=== PATIENT | female | born 1990 | race Caucasian/White ===

== ENCOUNTER 2018-12-02 19:51 | Inpatient (IN) | payer OTHER ==
[~2018-12-02 19:51] MED LIST: Bupivacaine/Epinephrine 0.25% 30 ML VIAL ONE
[2018-12-02 20:25] VITALS: BP 143/83; TEMP 98.3; BMI 32.4
[2018-12-02] MEDS ORDERED: Promethazine HCl 25 MG/ML VIAL IM PRN (20:43)
[2018-12-02] MEDS ORDERED: Butorphanol Tartrate 1 MG/ML VIAL SLOW IVP PRN (20:43)
[2018-12-02] MEDS ORDERED: Ibuprofen 800 MG TAB PO PRN (20:43)
[2018-12-02] MEDS ORDERED: Lidocaine 1% (PF) 30 ML VIAL SC PRN (20:43)
[2018-12-02] MEDS ORDERED: HYDROcodone/Acetaminophen 5/325 mg Tablet PO PRN ×2 (20:43)
[2018-12-02] MEDS ORDERED: NS / Oxytocin 40 units/1000ml 1,000 ML IV PRN (20:43)
[2018-12-02] MEDS ORDERED: Penicillin G Potassium 5 MILL.UNITS in Sodium Chloride 0.9% 100 ML IVPB SCH (20:45)
--- NOTE | 2018-12-02 20:47 | PDOC.LDHP ---
Labor and Delivery H&P HPI: Time: 2044 Location: L&D Patient of Dr Schulte CC: Here for CTX HPI: 28 yo (2 SABs) at 37 weeks 2 days, here for irergular CTX. No LOF, no VB. Good FM; no issues. She does have a past HX of anxiety, but is not on medications. She was checked last week and was 2cm Wednesday. Review of Systems: complete ROS completed and negative as per HPI Current gestational age (weeks): 37 (2 days) Dating criteria: last menstrual period Grav: 5 Para: 2 OB History Details: SVDs in past, no issues; SAB x 2 Current complications: none Abnormal US findings: No Past Medical History: Anxiety Current medications: pre-estela vitamins Previous surgical history: dilation and curettage, other (T&A) Allergies/Adverse Reactions: Allergies Allergy/AdvReac Type Severity Reaction Status Date / Time No Known Allergies Allergy Verified 12/02/18 20:16 - Physical Exam Abnormal vital signs: 143/83, 134/77, pulse 105; temp 98.3 General: NAD Heart: RRR Lungs: CTAB Abdomen: gravid Extremeties: no edema FHT: category 1, variability present Lozano contractions every: irritability; very irrgegular and nonfrequent CTX - Vaginal Exam cm dilated: 3 (to 4) Effacement: 75% Station: -1 - Assessment Multip at early term with cervical change from Wednesday (2 cm to 3-4cm); GBS pos; HX anxiety. - Plan Plan: admit to L&D, GBS antibiotic prophylaxis, informed consent obtained, anesthesia consult for pain management, other (Due to cervical change, and pain stated as 8/10 with CTX, I have elected to admit the patient . Additionally, her initial BP of 142/88 pushs me to admit. I will check CMP with labs. If BPs remain elevated, we may elect to begin Mag Sulfate (although ASX) to be conservative. I have given report to Dr Schulte, who is aware of the admission.)
[2018-12-02] MEDS: Lactated Ringer's 1,000 ML IV SCH (21:32)
[2018-12-02 21:49] LABS: Hemoglobin 12.3 g/dL (12.0-16.0); Mean Corpuscular HGB CONC 34.5 g/dL (32.0-36.0); Mean Corpuscular Hemoglobin 31.7 pg (27.0-31.0); Mean Platelet Volume 7.6 fL (7.4-10.4); Platelet Count 207 thou/uL (130-400); RBC Distribution Width 13.8 % (11.5-14.5); Red Blood Cell (RBC) Count 3.89 mill/uL (4.20-5.40); White Blood Cell (WBC) Count 13.5 thou/uL (4.8-10.8)
[2018-12-02 22:16] LABS: ALT (SGPT) 10 U/L (8-55); AST (SGOT) 18 U/L (5-34); Albumin 3.7 g/dL (3.5-5.0); Alkaline Phosphatase 150 U/L (40-150); Anion Gap 13 mmol/L (10-20); BUN (Urea Nitrogen) Less than 4 mg/dL (7.0-18.7); Bilirubin, Total 0.8 mg/dL (0.2-1.2); Calc. Creatinine Clearance 175 mL/min (70-130); Calcium 10.5 mg/dL (7.8-10.44); Carbon Dioxide 24 mmol/L (22-29); Chloride 106 mmol/L (98-107); Estimated GFR-MDRD Greater than 90; Globulin 3.2 g/dL (2.4-3.5); Glucose 86 mg/dL (70-105); Potassium 3.9 mmol/L (3.5-5.1); Protein, Total 6.9 g/dL (6.0-8.3); Sodium 139 mmol/L (136-145)
[2018-12-02 22:30] LABS: Syphilis Antibody Nonreactive (Nonreactive); Syphilis Antibody Index 0.06 S/CO (<1.00 Non-Reactive)
[2018-12-02 23:37] LABS: HBSAg Index 0.29 S/CO (0-0.99); HIV (1/2) Antibody/Antigen Non-Reactive (NonReactive); HIV 1/2 INDEX 0.23 S/CO (<1.00); Hep B Surf Ag Non-Reactive S/CO (NonReactive)
[2018-12-03] MEDS ORDERED: Ondansetron PF 4 MG/2 ML Vial ONE (00:10)
[2018-12-03] MEDS ORDERED: Ondansetron PF 4 MG/2 ML Vial IVP PRN ×2 (00:11→23:58)
[2018-12-03] MEDS ORDERED: Calcium Carbonate 500 MG ChewTAB PO PRN ×2 (01:32→21:24)
[2018-12-03] MEDS: Penicillin G 2.5 MILL.units 2.5 MILL.UNITS in Premix Bag 1 BAG IVPB SCH ×5 (01:37→14:28)
[2018-12-03] MEDS ORDERED: NS w/ Oxytocin 10 units 500 ML ONE (04:58)
[2018-12-03] MEDS ORDERED: NS w/ Oxytocin 10 units 500 ML IVPB SCH (05:00)
[2018-12-03] MEDS: Lactated Ringer's 1,000 ML IV SCH ×2 (05:00→09:05)
[2018-12-03] MEDS ORDERED: Fentanyl 4 mcg/Bup 0.1% Cadd 100 ML ONE ×2 (08:05→16:14)
[2018-12-03] MEDS ORDERED: Lidocaine 1.5%/Epinephrine 1:200,000 5 ML AMPUL IJ ONE (08:18)
[2018-12-03] MEDS ORDERED: Fentanyl 100 MCG/2 ML VIAL ONE (08:18)
--- NOTE | 2018-12-03 09:56 | PDOC.EVN ---
Event Note - Event Note Event Note: Asked to AROM by Dr. Schulte. SVE 4/thick, vtx not well applied to cervix. Fhts stable UCs q 3-4 mins, on pitocin. Plan: Will try again with next exam.
--- NOTE | 2018-12-03 15:41 | PDOC.EVN ---
Event Note - Event Note Event Note: Remains comfortable with epidural. SVE- 5/30/vtx blt, despite fundal pressure. FHTs stable. Ucs q 3 min, pit at 16 mu/min. Dr. Schulte notified.
--- NOTE | 2018-12-03 21:44 | PDOC.EVN ---
Event Note - Event Note Event Note: Event Note: 28 yo at 37 and 3/7 wks today who was admitted overnight and thought to be in early labor. She was also noted to have a single elevated blood pressure right after arrival, thought to be related to anxiety. Initial contractions seemed to dissipate somewhat overnight, but patient still asked for an epidural anticipating her pain might increase during the progression of labor. Unfortunately, despite the use of some pitocin for augmentation, the fetus was noted to become more and more ballotable, and minimal cervical change was noted. In fact, on 4 exams, we considered AROM, but felt it would be unsafe due to risks of cord prolapse. As I have continued to evaluate this patient, I do not believe she is currently in labor. I have discussed this with the patient, and we both feel that if this is indeed false labor, progressing with pitocin/ AROM is not ideal, especially given the FULL NICU status here, and high risk of cord prolapse and increased risk of for failure to descend. I have suggested that the patient allow us time to observe her for labor progression overnight. The patient however has asked for an nonfarm animal caretaker discharge if she is stable, so she can take her kids to yazdanism for . REVIEW OF SYSTEMS: Gen: no fever, chills, or sweats Neuro: no numbness/tingling, no weakness, denies headache Eyes: no visual changes ENT: no hearing changes, no sore throat, no runny nose Resp: no cough, no SOB, no wheeze Card: denies chest pain, no palpitations GI: no N/V/D, no abdominal pain : no dysuria, no hematuria MSK: no issues noted Heme: no easy bruising/bleeding Skin: no rash, no erythema PHYSICAL EXAMINATION: General: NAD, alert and oriented x3 HEENT: PERRLA, EOMI, normal sclera, oropharynx without erythema or exudate Neck: Supple. Full ROM. Heart/Cardiovascular System: RRR, Cap refill < 3 seconds, no rub, no murmur Lungs/Respiratory System: clear to auscultation bilaterally. No increased work of breathing. Room air. Abdomen/Gastro-Intestinal System: no abdominal tenderness, normal bowel sounds, Gravid Pelvic Exam: 5-6cm outer os, 4cm tight ring of the inner cervical os, cervical thickness about 3 cm. Head very poorly engaged, and floating away from my fingers on two serial exams. Extremities: Warm extremities. No cyanosis or edema. Neuro: No gross deficits appreciated. CN 2-12 grossly intact Psychiatry: Awake, Alert and cooperative with exam Skin/ Integumentary: No lesions, rashes, or ulcers Musculoskeletal: Full ROM A/P: Assessment: 1. 28 y/o Gt222 at 37and 3/7 wks 2. False Labor 3. Anxiety with single BP elevation on admit (stable ever since). Plan: 1. Pitocin has been turned off 2. ABX - for GBS turned off 3. DC Epidural continuous infusion 4. DC to home at patient's and husbands strong request if no further cervical change occurs overnight (false labor suspected).
[2018-12-03] MEDS ORDERED: Ibuprofen 800 MG TAB PO SCH (23:58)
[2018-12-03] MEDS ORDERED: HYDROcodone/Acetaminophen 5/325 mg Tablet PO PRN ×2 (23:58)
[2018-12-03] MEDS ORDERED: Zolpidem Tartrate 5 MG TAB PO PRN (23:58)
[2018-12-03] MEDS ORDERED: diphenhydrAMINE 25 MG CAP PO PRN (23:58)
[2018-12-03] MEDS ORDERED: Milk Of Magnesia 30 ML UDCUP PO PRN (23:58)
[2018-12-03] MEDS ORDERED: NS / Oxytocin 40 units/1000ml 1,000 ML IV SCH (23:58)
[2018-12-03] MEDS ORDERED: Promethazine HCl 25 MG/ML VIAL IM PRN (23:58)
[2018-12-03] MEDS ORDERED: Preparation H Ointment 28 GM TUBE PR PRN (23:58)
[2018-12-03] MEDS ORDERED: Lanolin Ointment 7 GM TUBE TOP PRN (23:58)
[2018-12-03] MEDS ORDERED: Misoprostol 200 MCG TAB VAG PRN (23:58)
[2018-12-03] MEDS ORDERED: Bisacodyl 10 MG SUPP PR PRN (23:58)
[2018-12-03] MEDS ORDERED: Benzocaine-Menthol 82.5 ML CAN TOP PRN (23:58)
[2018-12-04] MEDS ORDERED: Ferrous Sulfate 325 MG TAB PO SCH (08:00)
[2018-12-04] MEDS ORDERED: Docusate Calcium (SURFAK) 240 MG CAP PO SCH (09:00)
[2018-12-04] MEDS ORDERED: Prenatal Vitamin 1 TAB PO SCH (09:00)
[2018-12-04] MEDS ORDERED: Varicella virus, LIVE 0.5 ML VIAL SC ONE (09:00)
[2018-12-04] MEDS ORDERED: Adacel (T-DAP) 0.5 ML SYRINGE IM ONE (09:00)
[2018-12-05] MEDS ORDERED: Measles/Mumps/Rubella 10 MCG/0.5 ML VIAL SC ONE (09:00)
--- NOTE | 2018-12-05 12:56 | DIS ---
DATE OF ADMISSION: 12/02/2018 DATE OF DISCHARGE: 12/04/2018 ADMITTING PHYSICIAN: Oren Rodas MD. DISCHARGING PHYSICIAN: Tee Schulte MD. ADMISSION DIAGNOSES: Intrauterine at 37 weeks with questionable diagnosis of labor versus false labor and elevated blood pressure x1 on admission. DISCHARGE DIAGNOSES: False labor, no further elevation of blood pressure. DETAILS OF ADMISSION: Ms. Fernandez is a 28-year-old, 5, para 2-0-2-2 at 37 weeks and 2 days on admission, who came in initially complaining of contractions. She was admitted after having one elevated blood pressure, which may or may not have been attributed to anxiety at that time. She was then monitored on Labor and Delivery throughout the evening. Her contractions became somewhat more spaced out and irregular, but her cervix was dilated already 4 cm. Pitocin was then started as labor augmentation at 37 weeks. However, the patient was noted to have less and less descent of the head throughout the day and artificial rupture of membranes was not possible. She was checked twice by Dr. Joel Rodney who is the labor hospitalist that day. I came in after to assess her again. On my assessment, the head was now floating and not engaged in the pelvis. Her high blood pressures have resolved, and the patient and I had a very candid conversation for the next 20 minutes about our options of continuing augmentation of labor versus turning off the Pitocin and observing the patient until morning at which time we could consider discharge to home if she was stable. We also discussed the fact that the NICU was full and she was having a male infant at 37 weeks, which could result in the need for NICU bed. At that point, the patient had an overwhelming preference to turn off Pitocin and to consider discharge to home if possible. She stated that she would much prefer going home and attending the jainism services on [place] morning with her children if she was indeed not in labor and not progressing on her own. We also discussed her chances of section were relatively elevated if we ruptured membranes with the head unengaged. The patient continued to do well with Pitocin off, epidural anesthesia was discontinued, and she was discharged home the following morning on 12/04/2018, with instructions to follow up in the office in 48 hours for further examination. Job ID: [id number]
== END 2018-12-04 05:37 | disposition home health service (06) | DRG 833 ==
LOC: L&D/OP 19:51 → L&D 21:13
PROVIDERS: ADMIT Obstetrics & Gynecology; ATTEND Obstetrics & Gynecology
DX: O47.1 False labor at or after 37 completed weeks of gestation (principal); O99.820 Streptococcus B carrier state complicating pregnancy; Z3A.37 37 weeks gestation of pregnancy
CPT/HCPCS: 36415; 51702; 80053; 85027; 86780; 86850; 86900; 86901; 87340; 87389; 99285; J2405; J2540; J2550; J2590; J3010; J3490

== ENCOUNTER 2018-12-14 19:33 | Inpatient (IN) | payer OTHER ==
--- NOTE | 2018-12-13 21:08 | PDOC.LDHP ---
Labor and Delivery H&P Chief complaint: scheduled induction HPI: 28 y/o at 39 weeks who presents for term medical induction of labor. Patient has a current diagnosis of GHTN, possibly made worse by anxiety. She has done weekly NST and BPP in clinic. She was previously admitted at 37 weeks for false labor, and discharged to home at 4 cm dilation, but with a poorly engaged, ballotable head to the fetus. Current gestational age (weeks): 39 Due date: 12/21/18 Grav: 5 Para: 2 Current complications: gestational hypertension Abnormal US findings: No (ANGLE at 18 cm) Current medications: pre- vitamins Previous surgical history: none Allergies/Adverse Reactions: Allergies Allergy/AdvReac Type Severity Reaction Status Date / Time No Known Allergies Allergy Verified 12/02/18 20:16 Social history: none - Physical Exam Vital signs reviewed and normal: yes General: NAD, resting Heart: RRR Lungs: nonlabored breathing Abdomen: gravid Extremeties: no edema FHT: category 1 - Assessment L&D Assessment: medically indicated induction - Plan Plan: admit to L&D, labor augmentation if indicated
[~2018-12-14 19:33] MED LIST changes: -Bupivacaine/Epinephrine 0.25% 30 ML VIAL ONE; +Butorphanol Tartrate 1 MG/ML VIAL SLOW IVP PRN; +Carboprost 250 MCG/ML AMP IM PRN; +Diphenoxylate HCl/Atropine Tablet PO PRN; +Docusate 100 MG CAP PO PRN; +HYDROcodone/Acetaminophen 5/325 mg Tablet PO PRN; +Ibuprofen 800 MG TAB PO PRN; +Lidocaine 1% (PF) 30 ML VIAL SC PRN; +Misoprostol 200 MCG TAB PR PRN; +NS / Oxytocin 40 units/1000ml 1,000 ML IV PRN; +NS w/ Oxytocin 10 units 500 ML IV SCH; +Penicillin G Potassium 5 MILL.UNITS in Sodium Chloride 0.9% 100 ML IVPB SCH; +Promethazine HCl 25 MG/ML VIAL IM PRN; +Zolpidem Tartrate 5 MG TAB PO PRN; +ePHEDrine/0.9% NaCl/PF SYRINGE 50 mg/10 ml ONE
[2018-12-14 20:08] VITALS: BMI 32.1
[2018-12-14] MEDS: Lactated Ringer's 1,000 ML IV SCH (21:26)
[2018-12-14] MEDS: Penicillin G 2.5 MILL.units 2.5 MILL.UNITS in Premix Bag 1 BAG IVPB SCH (21:33)
[2018-12-14] MEDS ORDERED: Fentanyl 4 mcg/Bup 0.1% Cadd 100 ML ONE (22:38)
[2018-12-14 22:53] LABS: Hemoglobin 12.3 g/dL (12.0-16.0); Mean Corpuscular HGB CONC 34.6 g/dL (32.0-36.0); Mean Corpuscular Hemoglobin 32.2 pg (27.0-31.0); Mean Corpuscular Volume 93.2 fL (78.0-98.0); Mean Platelet Volume 8.2 fL (7.4-10.4); Platelet Count 205 thou/uL (130-400); RBC Distribution Width 14.2 % (11.5-14.5); Red Blood Cell (RBC) Count 3.83 mill/uL (4.20-5.40); White Blood Cell (WBC) Count 14.6 thou/uL (4.8-10.8)
[2018-12-14 23:21] LABS: Syphilis Antibody Nonreactive (Nonreactive); Syphilis Antibody Index 0.06 S/CO (<1.00 Non-Reactive)
[2018-12-14] MEDS ORDERED: Ondansetron PF 4 MG/2 ML Vial IVP PRN (23:26)
[2018-12-14] MEDS ORDERED: ePHEDrine/0.9% NaCl/PF SYRINGE 50 mg/10 ml SLOW IVP PRN (23:26)
[2018-12-14] MEDS ORDERED: diphenhydrAMINE 50 MG/ML VIAL IVP PRN (23:26)
[2018-12-14] MEDS ORDERED: Naloxone HCl 0.4 mg/ml Vial IVP PRN ×2 (23:26)
[2018-12-14] MEDS ORDERED: Eucerin (Mineral Oil/Petrolatum,White) 30 gm Jar TOP PRN (23:26)
[2018-12-14] MEDS ORDERED: Promethazine HCl 25 MG/ML VIAL IM PRN (23:26)
[2018-12-14] MEDS ORDERED: Acetaminophen 325 MG TAB PO PRN (23:26)
[2018-12-14] MEDS ORDERED: Lactated Ringer's 500 ML IV PRN (23:26)
[2018-12-14] MEDS ORDERED: Communication Order-Pharmacy FS SCH (23:30)
[2018-12-14] MEDS ORDERED: Fentanyl 4 mcg/Bupivacaine 0.1% Cassette 100 ML EPIDURAL SCH (23:30)
[2018-12-14] MEDS: Ondansetron PF 4 MG/2 ML Vial IVP PRN (23:48)
[2018-12-14 23:55] LABS: HBSAg Index 0.29 S/CO (0-0.99); Hep B Surf Ag Non-Reactive S/CO (NonReactive)
[2018-12-15] MEDS: Penicillin G 2.5 MILL.units 2.5 MILL.UNITS in Premix Bag 1 BAG IVPB SCH ×5 (01:38→13:42)
[2018-12-15] MEDS: Ondansetron PF 4 MG/2 ML Vial IVP PRN (05:02)
[2018-12-15] MEDS ORDERED: Fentanyl 4 mcg/Bup 0.1% Cadd 100 ML ONE (05:52)
[2018-12-15] MEDS ORDERED: Benzocaine-Menthol 82.5 ML CAN TOP PRN (09:43)
[2018-12-15] MEDS ORDERED: Promethazine HCl 25 MG/ML VIAL IM PRN (09:43)
[2018-12-15] MEDS ORDERED: HYDROcodone/Acetaminophen 5/325 mg Tablet PO PRN ×2 (09:43)
[2018-12-15] MEDS ORDERED: Preparation H Ointment 28 GM TUBE PR PRN (09:43)
[2018-12-15] MEDS ORDERED: diphenhydrAMINE 25 MG CAP PO PRN (09:43)
[2018-12-15] MEDS ORDERED: Bisacodyl 10 MG SUPP PR PRN (09:43)
[2018-12-15] MEDS ORDERED: NS / Oxytocin 40 units/1000ml 1,000 ML IV SCH (09:43)
[2018-12-15] MEDS ORDERED: Milk Of Magnesia 30 ML UDCUP PO PRN (09:43)
[2018-12-15] MEDS ORDERED: Ondansetron PF 4 MG/2 ML Vial IVP PRN (09:43)
[2018-12-15] MEDS ORDERED: Lanolin Ointment 7 GM TUBE TOP PRN (09:43)
[2018-12-15] MEDS: Lactated Ringer's 1,000 ML IV SCH ×2 (10:10→13:41)
[2018-12-15] MEDS: Ferrous Sulfate 325 MG TAB PO SCH (13:43)
[2018-12-15] MEDS: Ibuprofen 800 MG TAB PO SCH ×2 (14:08→21:33)
[2018-12-15] MEDS ORDERED: Adacel (T-DAP) 0.5 ML SYRINGE IM ONE (21:00)
[2018-12-15] MEDS ORDERED: Varicella virus, LIVE 0.5 ML VIAL SC ONE (21:00)
[2018-12-15] MEDS ORDERED: Measles/Mumps/Rubella 10 MCG/0.5 ML VIAL SC ONE (21:00)
[2018-12-15] MEDS: Docusate Calcium (SURFAK) 240 MG CAP PO SCH (21:33)
[2018-12-16 00:31] VITALS: TEMP 98.4
[2018-12-16] MEDS: Ibuprofen 800 MG TAB PO SCH (05:41)
[2018-12-16 07:51] LABS: Hemoglobin 11.3 g/dL (12.0-16.0); Mean Corpuscular HGB CONC 34.2 g/dL (32.0-36.0); Mean Corpuscular Volume 93.5 fL (78.0-98.0); Platelet Count 222 thou/uL (130-400); RBC Distribution Width 14.1 % (11.5-14.5); Red Blood Cell (RBC) Count 3.53 mill/uL (4.20-5.40); White Blood Cell (WBC) Count 11.9 thou/uL (4.8-10.8)
--- NOTE | 2018-12-16 08:45 | PDOC.PP ---
Post Progress Note Post Day #: 0 PO intake tolerated: yes Flatus: yes Ambulation: yes Vital Signs (12 hours) Temp Pulse Resp BP 12/16/18 05:22 98.4 F 73 16 110/75 12/16/18 00:31 98.4 F 89 16 121/74 Weight Weight 181 lb - Physical Examination General: NAD Cardiovascular: no m/r/g, RRR Respiratory: clear to auscultation bilaterally Abdominal: + bowel sounds, lochia, no distention Extremities: negative homans (B) Neurological: no gross focal deficits Psychiatric: A&Ox3, normal affect (DC HOME PLANNED TOMORROW.) Result Diagrams: 12/16/18 07:26 Additional Labs: Post Labs Blood Type A POSITIVE 12/14/18 21:52 Hep Bs Antigen Non-Reactive S/CO (NonReactive) 12/14/18 21:52
[2018-12-16 08:53] VITALS: BP 112/74
[2018-12-16] MEDS: Ferrous Sulfate 325 MG TAB PO SCH (08:53)
[2018-12-16] MEDS: Docusate Calcium (SURFAK) 240 MG CAP PO SCH (10:09)
== END 2018-12-16 12:40 | disposition home or self-care (01) | DRG 807 ==
LOC: L&D 19:33 → 3SE 12-15 09:50
PROVIDERS: ADMIT Obstetrics & Gynecology; ATTEND Obstetrics & Gynecology
PROC: 10E0XZZ Delivery of Products of Conception, External Approach (ICD-10-PCS; principal; 2018-12-15)
PROC: 10907ZC Drainage of Amniotic Fluid, Therapeutic from Products of Conception, Via Natural or Artificial Opening (ICD-10-PCS; 2018-12-15)
PROC: 10S0XZZ Reposition Products of Conception, External Approach (ICD-10-PCS; 2018-12-15)
DX: O13.4 Gestational [pregnancy-induced] hypertension without significant proteinuria, complicating childbirth (principal); Z37.0 Single live birth; O99.344 Other mental disorders complicating childbirth; F41.9 Anxiety disorder, unspecified; Z3A.39 39 weeks gestation of pregnancy
CPT/HCPCS: 36415; 85027; 86780; 86850; 86900; 86901; 87340; J2405; J2540; J2590